=== PATIENT | female | born 1950 | race African-American/Black ===

== ENCOUNTER → 2016-12-01 | Outpatient (CLI) | payer BC, OTHER | LOC: RAD 10:32 | DX: Z12.31 Encounter for screening mammogram for malignant neoplasm of breast (principal) ==

== ENCOUNTER → 2018-01-04 | Outpatient (CLI) | payer BC, OTHER | LOC: RAD 10:38 | DX: Z12.31 Encounter for screening mammogram for malignant neoplasm of breast (principal) ==

== ENCOUNTER → 2018-12-14 | Outpatient (CLI) | payer BC, OTHER | LOC: CAT 10:03 | DX: N28.1 Cyst of kidney, acquired (principal); J98.4 Other disorders of lung; M47.816 Spondylosis without myelopathy or radiculopathy, lumbar region; M51.36 Other intervertebral disc degeneration, lumbar region; Z90.710 Acquired absence of both cervix and uterus; Z90.49 Acquired absence of other specified parts of digestive tract ==

== ENCOUNTER 2018-12-21 13:00 | Emergency (ER) | payer BC, OTHER ==
[~2018-12-21] VITALS: Ht 157.5 cm; Wt 72.1 kg
[2018-12-21] MEDS ORDERED: VITAMIN D2000 UNIT PO (13:16)
[2018-12-21] MEDS ORDERED: ACTIGALL300 MG PO (13:16)
[2018-12-21 13:36] LABS: URINE BILIRUBIN NEGATIVE (Negative); URINE BLOOD NEGATIVE (Negative); URINE CLARITY CLEAR; URINE COLOR YELLOW; URINE GLUCOSE-RANDOM* NEGATIVE (Negative); URINE KETONES NEGATIVE (Negative); URINE LEUKOCYTES-REFLEX NEGATIVE (Negative); URINE NITRITE-REFLEX NEGATIVE (Negative); URINE PROTEIN (DIPSTICK) NEGATIVE (Negative); URINE SPECIFIC GRAVITY 1.015 (1.005-1.035); URINE UROBILINOGEN 0.2 E.U./dl (0.2-1.0)
[2018-12-21 13:57] LABS: ABSOLUTE NEUTROPHILS 5.7 thou/uL (1.4-8.2); BASOPHILS 0.7 % (0.0-2.0); EOSINOPHILS 0.5 % (0.0-3.0); HEMATOCRIT 35.9 % (37.0-47.0); HEMOGLOBIN 12.7 gm/dL (12.0-15.0); LYMPHOCYTES 19.6 % (24.0-44.0); MCH 29.6 pg (26.0-34.0); MCHC 35.3 g/dL (28.0-37.0); MCV 83.9 fL (80.0-100.0); MONOCYTES 4.7 % (1.0-8.0); PLATELET COUNT 345 thou/uL (150-400); POLYS 74.5 % (36.0-66.0); RBC 4.29 mil/uL (4.20-5.00); RDW 13.4 % (10.5-14.5); WBC 7.7 thou/uL (4.0-11.0)
[2018-12-21 14:07] LABS: CALCIUM 9.9 mg/dL (8.5-10.1); CREATININE 1.3 mg/dL (0.6-1.0); POTASSIUM 4.4 mmol/L (3.5-5.1)
[2018-12-21] MEDS ORDERED: HYDROCODONE-AP1 EAC6 PO (14:12)
[2018-12-21] MEDS ORDERED: MOBIC7.5 MG PO (14:12)
[2018-12-21] MEDS ORDERED: PROTONIX 20 MG20 M1 PO (14:12)
[2018-12-21 14:22] VITALS: BP 127/66
== END 2018-12-21 14:23 | disposition home or self-care (01) ==
LOC: ER 13:00
PROVIDERS: Nurse Practitioner Family
DX: M54.32 Sciatica, left side (principal); R10.9 Unspecified abdominal pain; Z90.710 Acquired absence of both cervix and uterus

== ENCOUNTER → 2019-03-20 | Outpatient (CLI) | payer BC, OTHER ==
[~2019-03-20] MED LIST: ACTIGALL300 MG PO; HYDROCODONE-AP1 EAC6 PO; MOBIC7.5 MG PO; PROTONIX 20 MG20 M1 PO; VITAMIN D2000 UNIT PO
== END ==
LOC: RAD 09:25
DX: Z12.31 Encounter for screening mammogram for malignant neoplasm of breast (principal)

== ENCOUNTER → 2020-05-08 | Outpatient (CLI) | payer BC, OTHER | LOC: RAD 14:33 | PROVIDERS: ATTEND Neuromusculoskeletal Medicine & OMM | DX: Z12.31 Encounter for screening mammogram for malignant neoplasm of breast (principal) ==

== ENCOUNTER → 2021-06-29 | Outpatient (CLI) | payer BC, OTHER | LOC: BC 08:53 | PROVIDERS: ATTEND Neuromusculoskeletal Medicine & OMM | DX: Z12.31 Encounter for screening mammogram for malignant neoplasm of breast (principal) ==